=== PATIENT | female | born 1980 | race Caucasian/White ===

== ENCOUNTER 2019-12-13 16:24 | Emergency (ER) | payer OTHER ==
[2019-12-13 16:34] VITALS: TEMP 98.2; BMI 17.7
[2019-12-13] MEDS ORDERED: ONDANSETRON *ODT* 4 MG TABLET SL ONE (17:26)
[2019-12-13] MEDS ORDERED: SODIUM CHLORIDE 1,000 ML IV STA (17:28)
[2019-12-13] MEDS ORDERED: ONDANSETRON 4 MG/2 ML VIAL IVPUSH ONE (17:29)
[2019-12-13] MEDS ORDERED: ONDANSETRON 4 MG/2 ML VIAL ONE (17:38)
--- NOTE | 2019-12-13 17:57 | PDOC ---
History of Present Illness - General Chief Complaint: Nausea/Vomiting Stated Complaint: VOMITING Time Seen by Provider: 12/13/19 17:29 History Source: Patient Exam Limitations: No Limitations - History of Present Illness Travel History: No Initial Comments: 12/13/19 17:51 39-year-old female presents to ED with complaints of nausea vomiting diarrhea since this a.m. Patient has no other complaints at this time. Patient denies irregular menses recent travel, recent illness. Patient denies drug or alcohol use and denies medical history. Timing/Duration: reports: intermittent Aggravating Factors: improves with: None Alleviating Factors: improves with: None Past History - Travel Traveled outside of the country in the last 30 days: No Close contact w/someone who was outside of country & ill: No - Past Medical History Allergies/Adverse Reactions: Allergies Allergy/AdvReac Type Severity Reaction Status Date / Time No Known Allergies Allergy Verified 12/13/19 16:47 Home Medications: Ambulatory Orders Ibuprofen [Motrin] 600 mg PO Q6H PRN #24 tablet 02/27/12 Oxycodone HCl/Acetaminophen [Percocet 5-325 mg Tablet] 1 each PO Q6H PRN #8 tablet 02/27/12 Sulfamethoxazole/Trimethoprim [Bactrim Ds Tablet] 1 each PO BID #13 tablet 02/26 COPD: No - Surgical History Cholecystectomy: Yes - Psycho Social/Smoking Cessation Hx Smoking Status: Yes Smoking History: Former smoker Have you smoked in the past 12 months: Yes Number of Cigarettes Smoked Daily: 3 If you are a former smoker, when did you quit?: 10/2019 Information on smoking cessation initiated: No Hx Alcohol Use: No Drug/Substance Use Hx: No Patient Lives Alone: No Review of Systems - Review of Systems Able to Perform ROS?: No Is the patient limited Chinese proficient: No Constitutional: Yes: Weakness HEENTM: No: Symptoms Reported Respiratory: No: Symptoms reported ABD/GI: Yes: Diarrhea, Nausea, Poor Fluid Intake, Vomiting. No: Poor Appetite : No: Symptoms Reported Musculoskeletal: No: Symptoms Reported Integumentary: No: Symptoms Reported Neurological: No: Symptoms reported Hematologic/Lymphatic: No: Symptoms Reported *Physical Exam - Vital Signs Last Vital Signs Temp Pulse Resp BP Pulse Ox 98.2 F 88 18 115/82 100 12/13/19 16:32 12/13/19 16:32 12/13/19 16:32 12/13/19 16:32 12/13/19 16:32 - Physical Exam General Appearance: Yes: Nourished, Appropriately Dressed. No: Apparent Distress HEENT: positive: EOMI, JAYSON, TMs Normal, Pharynx Normal (lips dry) Respiratory/Chest: positive: Lungs Clear, Normal Breath Sounds. negative: Respiratory Distress, Accessory Muscle Use Cardiovascular: positive: Regular Rhythm, Regular Rate. negative: Murmur Gastrointestinal/Abdominal: positive: Soft. negative: Distended, Tenderness Musculoskeletal: negative: CVA Tenderness Integumentary: positive: Normal Color, Warm, Moist Neurologic: positive: Motor Strength 5/5 (ambulatory) ED Treatment Course - Medications Given in the ED: ED Medications Discontinued Medications Generic Name Dose Route Start Last Admin Trade Name Freq PRN Reason Stop Dose Admin Ondansetron HCl 4 mg 12/13/19 17:26 12/13/19 17:50 Zofran Odt - SL 12/13/19 17:27 Not Given ONCE ONE Ondansetron HCl 4 mg 12/13/19 17:29 12/13/19 17:49 Zofran Injection IVPUSH 12/13/19 17:30 4 mg ONCE ONE Administration Medical Decision Making - Medical Decision Making 12/13/19 17:55 Chief complaint: Nausea vomiting diarrhea since this a.m. Patient has no other complaints but requesting an IV. Exam: Patient with dry oral mucosa but otherwise normal physical exam. Vital signs stable. Plan: Urine urine culture urine IV fluids and IV Zofran. Discharge - Discharge Information Problems reviewed: Yes Clinical Impression/Diagnosis: Gastroenteritis Condition: Stable Disposition: HOME - Follow up/Referral Referrals: Rasheed Cox MD [Primary Care Provider] - - Patient Discharge Instructions Patient Printed Discharge Instructions: DI for Viral Gastroenteritis -- Adult Additional Instructions: Thank you for choosing [facility]. It was a pleasure taking care of you. You have likely have the stomach bug Recommend plenty of hydration (at least 2-3L of water daily) You may drink pedialyte Eat light food like bananas, rice, applesauce, toast, crackers until feeling better Follow-up with your doctor in 2 day Return to the Emergency Department if your symptoms worsen or persist or have other concerning symptoms. - Post Discharge Activity
[2019-12-13 18:07] LABS: PH,URINE 6.5 (5.0-8.0); URINE APPEARANCE CLEAR; URINE BILIRUBIN NEGATIVE (NEGATIVE); URINE COLOR DK YELLOW; URINE GLUCOSE (UA) NEGATIVE (NEGATIVE); URINE KETONE TRACE (NEGATIVE); URINE LEUK ESTERASE NEGATIVE (NEGATIVE); URINE NITRITE NEGATIVE (NEGATIVE); URINE PROTEIN NEGATIVE (NEGATIVE)
--- NOTE | 2019-12-13 18:28 | PDOC ---
*Physical Exam - Vital Signs Last Vital Signs Temp Pulse Resp BP Pulse Ox 98.2 F 88 18 115/82 100 12/13/19 16:32 12/13/19 16:32 12/13/19 16:32 12/13/19 16:32 12/13/19 16:32 ED Treatment Course - ADDITIONAL ORDERS Additional order review: Laboratory Results 12/13/19 12/13/19 17:34 17:34 Urine Color Dk yellow Urine Appearance Clear Urine pH 6.5 Ur Specific Alpha 1.029 Urine Protein Negative Urine Glucose (UA) Negative Urine Ketones Trace H Urine Blood Negative Urine Nitrite Negative Urine Bilirubin Negative Urine Urobilinogen 2.0 H Ur Leukocyte Esterase Negative Urine HCG, Qual Negative - Medications Given in the ED: ED Medications Discontinued Medications Generic Name Dose Route Start Last Admin Trade Name Freq PRN Reason Stop Dose Admin Ondansetron HCl 4 mg 12/13/19 17:26 12/13/19 17:50 Zofran Odt - SL 12/13/19 17:27 Not Given ONCE ONE Ondansetron HCl 4 mg 12/13/19 17:29 12/13/19 17:49 Zofran Injection IVPUSH 12/13/19 17:30 4 mg ONCE ONE Administration Medical Decision Making - Medical Decision Making Patient signed out to me by JASPREET robert 'UA negative UCG negative Patient feeling better, tolerating PO stable for dc 12/13/19 18:23 Discharge - Discharge Information Problems reviewed: Yes Clinical Impression/Diagnosis: Gastroenteritis Condition: Stable Disposition: HOME - Admission No - Additional Discharge Information Prescription Drug Monitoring Program (I-STOP) results: I-STOP not reviewed - Follow up/Referral Referrals: Rasheed Cox MD [Primary Care Provider] - - Patient Discharge Instructions Patient Printed Discharge Instructions: DI for Viral Gastroenteritis -- Adult Additional Instructions: Thank you for choosing [facility]. It was a pleasure taking care of you. You have likely have the stomach bug Recommend plenty of hydration (at least 2-3L of water daily) You may drink pedialyte Eat light food like bananas, rice, applesauce, toast, crackers until feeling better Follow-up with your doctor in 2 day Return to the Emergency Department if your symptoms worsen or persist or have other concerning symptoms. - Post Discharge Activity
[2019-12-13 18:48] VITALS: BP 107/79; PULSE 77
== END 2019-12-13 18:39 | disposition home or self-care (01) ==
LOC: JER 16:24
PROC: 3E033GC Introduction of Other Therapeutic Substance into Peripheral Vein, Percutaneous Approach (ICD-10-PCS; principal; 2019-12-13)
DX: K52.9 Noninfective gastroenteritis and colitis, unspecified (principal)
CPT/HCPCS: 81003; 84703; 87086; 96374; 99284-25; J7030

== ENCOUNTER 2023-01-03 13:38 | Emergency (ER) | payer BC, OTHER ==
[2023-01-03 14:12] VITALS: TEMP 98.5; BMI 18.8
[2023-01-03] MEDS ORDERED: ONDANSETRON 4 MG/2 ML VIAL IVPUSH ONE (15:19)
[2023-01-03] MEDS ORDERED: SODIUM CHLORIDE 0.9% 500 ML INFUS.BAG IV ONE (15:19)
[2023-01-03] MEDS ORDERED: ACETAMINOPHEN 1000 MG/100 ML BAG IVPB ONE (15:19)
[2023-01-03] MEDS ORDERED: ACETAMINOPHEN INJECTION 100 ML IVPB ONE (15:24)
[2023-01-03] MEDS ORDERED: ONDANSETRON 4 MG/2 ML VIAL ONE (15:24)
[2023-01-03 16:00] LABS: BASO % 0.3 % (0-2.0); EOS % 2.9 % (0-4.5); HEMATOCRIT 40.1 % (32.4-45.2); HEMOGLOBIN 13.7 GM/dL (10.7-15.3); LYMPH % 10.8 % (8-40); MCH 30.1 pg (25.7-33.7); MCHC 34.2 g/dl (32.0-36.0); MONO % 7.3 % (3.8-10.2); NEUT % 78.7 % (42.8-82.8); PLATELET COUNT 281 10^3/uL (134-434); RBC 4.56 M/mm3 (3.60-5.2); RDW 14.2 % (11.6-15.6); WHITE BLOOD COUNT 7.5 K/mm3 (4.0-10.0)
[2023-01-03 16:29] LABS: CALCIUM 8.8 mg/dL (8.5-10.1)
[2023-01-03 16:30] LABS: ALBUMIN 3.8 g/dl (3.4-5.0); BLOOD UREA NITROGEN 11.6 mg/dL (7-18)
[2023-01-03 16:33] LABS: CREATININE 0.7 mg/dL (0.55-1.3)
[2023-01-03 16:34] LABS: BILIRUBIN,TOTAL 0.9 mg/dL (0.2-1)
[2023-01-03 16:35] LABS: TOT PROT 7.4 g/dl (6.4-8.2)
[2023-01-03 16:39] LABS: EPI CELLS >36 /uL (0-25.1); HYALINE CASTS 3 /uL (0-3.1); PH,URINE 5.5 (5.0-8.0); URINE APPEARANCE CLEAR; URINE BACTERIA 128 /uL (0-1359); URINE BILIRUBIN NEGATIVE (NEGATIVE); URINE COLOR DK YELLOW; URINE GLUCOSE (UA) NEGATIVE (NEGATIVE); URINE KETONE 1+ (NEGATIVE); URINE LEUK ESTERASE TRACE (NEGATIVE); URINE NITRITE NEGATIVE (NEGATIVE); URINE PROTEIN 1+ (NEGATIVE); URINE RBC 64 /uL (0-23.9); URINE WBC 76 /uL (0-25.8)
[2023-01-03 18:15] VITALS: BP 120/87; PULSE 90; RESP 18
== END 2023-01-03 18:46 | disposition home or self-care (01) ==
LOC: JER 13:38
PROC: 3E033NZ Introduction of Analgesics, Hypnotics, Sedatives into Peripheral Vein, Percutaneous Approach (ICD-10-PCS; principal; 2023-01-03)
PROC: 3E033GC Introduction of Other Therapeutic Substance into Peripheral Vein, Percutaneous Approach (ICD-10-PCS; 2023-01-03)
DX: K52.9 Noninfective gastroenteritis and colitis, unspecified (principal); R10.32 Left lower quadrant pain; Z20.822 Contact with and (suspected) exposure to COVID-19
CPT/HCPCS: 0241U-QW; 36415; 74177-TC; 80053; 81003; 83690; 84703; 85025; 87086; 99285-25; Q9967

== ENCOUNTER 2024-12-06 11:25 | Emergency (ER) | payer BC ==
[2024-12-06 11:38] VITALS: BP 138/83; PULSE 104; RESP 18; TEMP 99.9; BMI 17.2
[2024-12-06] MEDS ORDERED: ACETAMINOPHEN 500 MG TABLET (FP) ONE (12:15)
[2024-12-06] MEDS ORDERED: ALBUTEROL SO4 2.5/IPRATROPIUM 0.5 INH SOL 3 ML VIAL.NEB. NEB ONE (12:15)
[2024-12-06] MEDS: ALBUTEROL SO4 2.5/IPRATROPIUM 0.5 INH SOL 3 ML VIAL.NEB. NEB ONE (12:18)
[2024-12-06] MEDS: ACETAMINOPHEN 500 MG TABLET (FP) PO ONE (12:18)
[2024-12-06 14:18] LABS: HIV INTERPRETATION NEGATIVE (NEGATIVE)
== END 2024-12-06 14:11 | disposition home or self-care (01) ==
LOC: JERFT 11:25
PROC: 3E0F7GC Introduction of Other Therapeutic Substance into Respiratory Tract, Via Natural or Artificial Opening (ICD-10-PCS; principal; 2024-12-06)
DX: J22 Unspecified acute lower respiratory infection (principal); J45.901 Unspecified asthma with (acute) exacerbation; M79.10 Myalgia, unspecified site; R05.9 Cough, unspecified; R68.83 Chills (without fever); Z20.822 Contact with and (suspected) exposure to COVID-19
CPT/HCPCS: 0241U-QW; 36415; 86803; 87389; 99283-25